=== PATIENT | female | born 1965 | race Caucasian/White ===

== ENCOUNTER 2023-08-15 09:46 | Outpatient (CLI) | payer BC | END 2023-08-15 09:47 | disposition home or self-care (01) | LOC: BICRAD 09:46 | PROVIDERS: ATTEND Chiropractor | DX: M47.812 Spondylosis without myelopathy or radiculopathy, cervical region (principal); M50.321 Other cervical disc degeneration at C4-C5 level; M50.322 Other cervical disc degeneration at C5-C6 level; M48.8X2 Other specified spondylopathies, cervical region | CPT/HCPCS: 72040 ==